=== PATIENT | female | born 1955 | race Caucasian/White ===

== ENCOUNTER 2023-04-30 08:33 | Day surgery (SDC) | payer MEDICARE, OTHER ==
[~2023-04-30] VITALS: Ht 157.5 cm; Wt 55.5 kg
[~2023-04-30 08:33] MED LIST: BUTASPCAF; Excedrin Extra1 EACH; FISH1000; PSEU120ER PO; VITAMIN D
[2023-04-30] MEDS ORDERED: QDOLO5 MG/1 ML (08:53)
[2023-04-30 10:31] VITALS: BP 135/81
== END 2023-04-30 10:37 | disposition home or self-care (01) ==
LOC: ORSCSDS 08:33
PROVIDERS: Internal Medicine Gastroenterology
PROC: 0DJD8ZZ Inspection of Lower Intestinal Tract, Via Natural or Artificial Opening Endoscopic (ICD-10-PCS; principal; 2023-04-30 09:45)
DX: Z12.11 Encounter for screening for malignant neoplasm of colon (principal); Z83.71 Family history of colonic polyps; K60.2 Anal fissure, unspecified; Z79.899 Other long term (current) drug therapy
CPT/HCPCS: J2704; J7120